=== PATIENT | female | born 1990 | race Caucasian/White ===

== ENCOUNTER 2024-08-17 18:59 | Emergency (ER) | payer SELFPAY ==
[2024-08-17] MEDS ORDERED: Ibuprofen 200 MG TAB ONE (19:25)
[2024-08-17] MEDS ORDERED: Boostrix 0.5 ML (Tdap) VIAL (>/=7 yrs of age) ONE (19:39)
[2024-08-17] MEDS ORDERED: Bacitracin 1 PK ONE (19:56)
== END 2024-08-17 20:08 | disposition home or self-care (01) ==
LOC: ERS 18:59
DX: T21.65XA Corrosion of second degree of buttock, initial encounter (principal); Z23 Encounter for immunization; X58.XXXA Exposure to other specified factors, initial encounter
CPT/HCPCS: 90471; 90715